=== PATIENT | female | born 1950 | race Caucasian/White ===

== ENCOUNTER 2016-12-01 09:31 | Emergency (ER) | payer OTHER ==
--- NOTE | 2016-12-01 09:38 | EDM.PDOC ---
ED HPI GENERAL MEDICAL PROBLEM - General Chief Complaint: General Stated Complaint: Right sided pain Time Seen by Provider: 12/01/16 09:31 Source of Information: Reports: Patient, Old records ([facility] chart/EMR), Significant Other History Limitations: Reports: No limitations - History of Present Illness INITIAL COMMENTS - FREE TEXT/NARRATIVE: The patient was brought to the emergency room via private automobile by her significant other for evaluation of progressive nonproductive cough during the last 3-4 days with patient recently diagnosed with influenza B. by her regular provider yesterday. She did have a fever of 101 yesterday morning with last Tylenol dosage of 1000 mg at midnight last evening. She has had some intermittent progressive right lower sharp pleuritic type symptoms and rated these at 10/10 earlier this morning. The patient has also had some loose stools with about 10 bowel movements per day during the last 24 hours. No recent history of abdominal pain, heartburn, nausea, melena, gross hematochezia , or any food intolerance, including fatty foods, etc.. Her significant other has similar type symptoms and was also diagnosed with influenza B. The patient did get her influenza booster this season Onset: gradual Onset Date: 11/27/16 Onset Time: 12:00 Duration: Getting worse Location: Reports: chest. Denies: face, neck, abdomen, back, upper extremity, left, upper extremity, right Quality: Reports: Sharp Severity: severe Improves with: Reports: None Worsens with: Reports: None Context: Reports: Other (As above) Associated Symptoms: Reports: chest pain (Pleurisy), cough, fever/chills, loss of appetite, weakness (Borderline). 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 Abdominal Pain Score (Numeric/FACES): 10 - Related Data Allergies Allergy/AdvReac Type Severity Reaction Status Date / Time metoprolol Allergy UNSURE Verified 12/01/16 09:42 oxycodone HCl [From Percocet] Allergy Airway Verified 12/01/16 09:42 Tightness Penicillins Allergy Rash Verified 12/01/16 09:42 pravastatin Allergy Muscle Verified 12/01/16 09:42 Aches simvastatin Allergy Diarrhea Verified 12/01/16 09:42 Sulfa (Sulfonamide Allergy Airway Verified 12/01/16 09:42 Antibiotics) Tightness zoster vaccine live Allergy Other Verified 12/01/16 10:47 [From Zostavax (PF)] Home Meds: Home Meds Fluticasone Propionate [Flonase] 2 spray NASBOTH BID 07/19/14 [History] Rosuvastatin [Crestor] 5 mg PO DAILY 07/19/14 [History] Cholecalciferol (Vitamin D3) [Vitamin D3] 1,000 unit PO DAILY 11/19/16 [History] Levothyroxine Sodium [Synthroid] 137 mcg PO ACBREAKFAST 11/19/16 [History] Mag Hydrox/Al Hydrox/Simeth [Antacid Liquid] 30 ml PO ASDIRECTED PRN 11/19/16 [ History] Pantoprazole [Protonix] 40 mg PO DAILY 11/19/16 [History] Sertraline [Zoloft] 50 mg PO DAILY 11/19/16 [History] Sucralfate [Carafate] 1 gm PO TID 11/19/16 [History] Triamterene/Hydrochlorothiazid [Dyazide 37.5-25] 1 cap PO DAILY 11/19/16 [ History] metFORMIN HCl [Metformin HCl] 500 mg PO DAILY 11/19/16 [History] Cefprozil [Cefzil] 500 mg PO Q12HR #20 tablet 12/01/16 [Rx] Dextromethorphan/guaiFENesin [Mucinex DM ER 600-30 MG] 1 tab PO BID #20 tab.er 12/01/16 [Rx] Ipratropium/Albuterol Sulfate [Iprat-Albut 0.5-3(2.5) MG/3 ML] 3 ml IH Q6HR #0 ampule 12/01/16 [Rx] Past Medical History HEENT History: Reports: Allergic rhinitis, Impaired vision, Sinusitis, Other ( see below). Denies: Cataract, Glaucoma, Hard of hearing, Macular degeneration, Retinal detachment Other HEENT History: oral surgery with dental implants lower teeth as below. Full upper dentures. Right lower lip,gum and chin numb secondary to injury during oral surgery, patient wears glasses, allergic rhinitis and sinusitis Cardiovascular History: Reports: Arrhythmia, High cholesterol, Hypertension, Other (see below). Denies: Afib, Aneurysm, Blood clots/VTE/DVT, CAD, Heart Failure, Heart murmur, NC, PVD, Syncope Other Cardiovascular History: PVCs Respiratory History: Reports: Bronchitis, recurrent, COPD, Pneumonia, recurrent , Other (see below). Denies: Asthma, Intubation, previous, PE, Pneumothorax, Sleep apnea, TB Other Respiratory History: Pulmonary Nodules in the right middle lobe x2 CT scan being followed by [facility], moderate COPD by chest x-ray Gastrointestinal History: Reports: Cholelithiasis, Colon polyp, Diverticulosis, Fecal incontinence (Stress stool incontinence with coughing, benign hyperplastic colonic polyps at 10 cm and at 25 cm at time of colonoscopy on ), Gastritis, GERD, PUD, Other (see below). Denies: Celiac disease, Chronic constipation, Chronic diarrhea, GI bleed, Hepatitis, Helicobacter pylori , Inflammatory bowel disease, Irritable bowel syndrome, Jaundice, Pancreatitis Other Gastrointestinal History: Gastritis and esophagitis at time of EGD in November 2006 with history of possible gastric ulcer at age 21 Genitourinary History: Reports: Urinary incontinence, UTI, recurrent, Other ( see below). 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 Denies: Dysfunctional uterine bleeding, Endometriosis, Fibroids, PID, Spontaneous : 2 Para: 2 (Full term without complications during pregnancies or deliveries although first child was breech) LMP (Approximate): Menopausal (At about age 47) Musculoskeletal History: Reports: Amputation, Arthritis, Back pain, chronic, Fibromyalgia, Osteoarthritis, Osteoporosis, Other (see below). Denies: Fracture , Gout, RA, SLE Other Musculoskeletal History: Mild scoliosis Neurological History: Reports: None. Denies: Cerebral aneurysms, Concussion, CVA, Headaches, chronic, Migraines, MS, Neuropathy, diabetic, Neuropathy, peripheral, Parkinson's, Seizure, TIA Psychiatric History: Reports: Anxiety, Depression. Denies: Abuse, victim of, ADD, ADHD, Addiction, Psych Hospitalization(s), PTSD, Suicide attempt, Suicidal ideation Endocrine/Metabolic History: Reports: Diabetes, type II, Hypothyroidism, Osteoporosis, Other (see below). Denies: Diabetes, gestational, Diabetes, type I, IDDM Other Endocrine/Metabolic History: Pre diabetes Hematologic History: Reports: Other (see below). Denies: Anemia, Blood transfusion(s), Iron deficiency Immunologic History: Reports: None. Denies: AIDS, HIV, SLE Oncologic (Cancer) History: Reports: None. Denies: Basal cell carcinoma, Cervix , Colon, Hodgkin's Lymphoma, Leukemia, Lymphoma, Malignant melanoma, Non-Hodgkin 's Lymphoma, Squamous cell carcinoma Dermatologic History: Reports: Venous stasis dermatitis. Denies: Eczema, Psoriasis - Infectious Disease History Infectious Disease History: Reports: Chicken pox, Measles, Mumps, Pertussis ( whooping cough), Shingles (Right-sided facial frontal herpes zoster in September 2016, right lower abdominal region in about 2011, left lower abdominal region in about 2004). Denies: C-difficile, Meningitis, Mononucleosis, MRSA, Rheumatic Fever, Rubella, Scarlet fever, TB, VRE - Past Surgical History Head Surgeries/Procedures: Reports: None HEENT Surgical History: Reports: Naso-sinus surgery, Oral surgery, Other (see below). Denies: Adenoidectomy, Cataract surgery, Eye surgery, Laser surgery, LASIK, Myringotomy w tube(s), Tonsillectomy Other HEENT Surgeries/Procedures: Complete upper teeth extraction with lower dental implants, sinus surgery in the Cardiovascular Surgical History: Reports: None. Denies: Varicose, Vascular surgery Respiratory Surgical History: Reports: None. Denies: Lung Biopsies, Thoracentesis GI Surgical History: Reports: Cholecystectomy, Colonoscopy, Colostomy, EGD, Polypectomy, Other (see below). Denies: Appendectomy, Hernia, abdominal, Hernia , inguinal, Hernia repair/other Other GI Surgeries/Procedures: Laparoscopic cholecystectomy in 1998, colonoscopy with polypectomy x2 on 07/19/14, EGD with biopsy on 11/19/06 Female Surgical History: Reports: None. Denies: Breast biopsy, section, Hysterectomy, Salpingo-oophorectomy, Tubal ligation Endocrine Surgical History: Reports: None. Denies: Thyroid biopsy Neurological Surgical History: Denies: C-Spine, Discectomy, Laminectomy, Lumbar spine, Spinal fusion, Vertebroplasty Musculoskeletal Surgical History: Reports: None. Denies: Amputation, Arthroscopic procedure, Carpal tunnel, Ganglion cyst, Joint replacement, ORIF, Shoulder surgery Oncologic Surgical History: Reports: None Dermatological Surgical History: Reports: None - Past Imaging History Past Imaging History: Reports: Carotid US (Carotid Doppler studies on 12/20/14), CAT scan (CT of the head on 11/30/14, CT of the chest on 11/16/16, CT of the neck and chest both with IV contrast on 01/18/12, CT of the sinuses on 08/19/11), DEXA scan (11/09/16), Mammogram (Last mammogram on 11/09/16), Ultrasound (Renal ultrasound on 11/16/16) Social & Family History - Family History Cardiac: Reports: Hypertension, Other (see below) Other Cardiac Family History: Father with hypertension : Reports: Cystic kidney disease, Renal disease/insufficiency, Other (see below) Other Family History: Father with renal insufficiency and polycystic kidneys Neurological: Reports: MS, Other (see below) Other Neurological Family History: Brother with MS Endocrine/Metabolic: Reports: Diabetes, type II, IDDM, Other (see below) Other Endocrine/Metabolic Family History: Brother with IDDM, AODM in sister and brother Oncologic: Reports: Breast, Skin, Other (see below) Other Oncologic Family History: Melanoma in sister, sister with breast cancer in her 50s - Tobacco Use Smoking Status *Q: Former Smoker Tobacco Use Within Last Twelve Months: No Years of Tobacco use: 24 Packs/Tins Daily: 1 (Quit smoking in 2007 with history of cigarette use for about 20 years between ages 21 and 41 with subsequent 4-5 year use of cigars thereafter) Used Tobacco, but Quit: Yes Month Tobacco Last Used: quit in 2007 Smoking Cessation Information Provided To Patient: No Second Hand Smoke Exposure: No Second Hand Smoke Education Provided: No - Caffeine Use Caffeine Use: Reports: Coffee (5 cups per day), Soda (2 sodas per month), Tea ( One glass per month). Denies: Energy drinks - Alcohol Use Alcohol Use History: Yes Days Per Week of Alcohol Use: 0 (No previous DWIs, problems with alcohol abuse, etc.) Number of Drinks Per Day: 4 (Usually beer about once per month) Total Drinks Per Week: 0 Alcohol Use in Last Twelve Months: Yes Alcohol Use Frequency: Socially - Recreational Drug Use Recreational Drug Use: No Drug Use in Last 12 Months: No Recreational Drug Type: Denies: Amphetamines (Speed), Cocaine, Heroin, Inhalants (Glues, Solvents, Aerosols), LSD (Acid), Marijuana/Hashish, Methamphetamine - Living Situation & Occupation Living situation: Reports: (1991 with 2 children from that marriage), alone 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 Denies: diaphoresis, weight loss, weight gain HEENT: Reports: Glasses, Rhinitis, Sinus problem. Denies: Dental pain, Ear pain , Throat pain, Vertigo, Vision change Respiratory: Reports: pleuritic chest pain, cough. Denies: shortness of breath , wheezing, sputum Cardiovascular: Reports: Edema (Stable dependent). Denies: Chest pain, Blood pressure problem, Claudication, Dyspnea on exertion, Lightheadedness, Orthopnea , Palpitations, PND, Syncope Endocrine: Reports: no symptoms GI/Abdominal: Reports: Diarrhea, Decreased appetite. Denies: Abdominal pain, Black stool, Bloody stool, Constipation, Difficulty swallowing, Distension, Flatus, Hematemesis, Hematochezia, Melena, Mucous in stool, Nausea, Stool incontinence, Vomiting : Reports: no symptoms. Denies: discharge, dysuria, flank pain, frequency, hematuria, incontinence, pain, urgency, urinary retention Musculoskeletal: Reports: joint pain (Generalized arthralgia). Denies: neck pain, shoulder pain, back pain, leg pain, joint swelling, muscle pain, muscle stiffness Skin: Reports: no symptoms. Denies: diaphoresis, pruritis, rash, wound Neurological: Reports: no symptoms. Denies: confusion, dizziness, headache, numbness, paresthesia, syncope, tingling, weakness Psychiatric: Reports: No symptoms. Denies: Agitation, Anxiety, Confusion, Depression, Hallucinations Hematologic/Lymphatic: Reports: no symptoms Immunologic: Reports: no symptoms ED EXAM, GENERAL - Physical Exam Exam: See Below Exam Limited By: No limitations General Appearance: alert, WD/WN, no apparent distress, anxious (Mild to moderate) Eye Exam: bilateral eye: EOMI, normal inspection (No nystagmus), PERRL Ears: normal external exam, normal canal, hearing grossly normal, normal TMs Nose: normal inspection, normal mucosa, no blood, clear rhinorrhea (Mild bilateral) Throat/Mouth: Normal inspection, Normal lips, Normal gums, Normal oropharynx, Normal voice, No airway compromise, Other (Mild dry oral mucosa). No: Normal teeth (Complete upper dentures), Dysphagia, Perioral cyanosis Head: atraumatic, normocephalic. No: facial swelling, facial tenderness, sinus tenderness Neck: normal inspection, supple, non-tender, full range of motion. No: lymphadenopathy (L), lymphadenopathy (R), thyromegaly Respiratory/Chest: no respiratory distress, no accessory muscle use, chest non- tender, rales (Mild bilateral basilar rales). No: pleural rub, retractions Cardiovascular: normal peripheral pulses, regular rate, rhythm, no edema, no gallop, no JVD, no murmur, no rub. No: gallop/S3, gallop/S4, friction rub Peripheral Pulses: 2+: radial (L), radial (R) GI/Abdominal: normal bowel sounds, soft, non tender, no organomegaly, no distention, no abnormal bruit, no mass, other (obese). No: guarding (Female) Exam: Deferred Rectal (Female) Exam: Deferred Back Exam: normal inspection, full range of motion. No: CVA tenderness (L), decreased range of motion, muscle spasm Extremities: normal inspection, normal range of motion, non-tender, no pedal edema, normal capillary refill. No: Dede's Sign Neurological: alert, oriented, CN II-XII intact, normal cognition, normal gait, no motor/sensory deficits Psychiatric: anxious (Mild to moderate), depressed mood (Borderline) Skin Exam: Warm, Dry, Intact, Normal color, No rash. No: Diaphoretic, Ecchymosis, Petechiae, Rash, Wound/incision Lymphatic: no adenopathy Course - Vital Signs Last Recorded V/S: Last Vital Signs Temp 36.7 C 12/01/16 09:39 Pulse 82 12/01/16 09:39 Resp 20 12/01/16 09:39 BP 118/66 12/01/16 09:39 Pulse Ox 99 12/01/16 09:39 Vital Signs - 24 hr 12/01/16 09:39 Temperature [ 36.7 C Oral] Pulse, 82 Peripheral [ Right Pulse Oximetry] Respiratory 20 Rate Blood Pressure 118/66 [Right Upper Arm] O2 Sat by Pulse 99 Oximetry - Orders/Labs/Meds Orders: Active Orders 24 hr Category Date Time Status Peripheral IV Care [RC] . DIRECTED Care 12/01/16 09:41 Active Abdomen Series w Chest 1V [CR] Stat Exams 12/01/16 09:38 Taken CULTURE BLOOD [BC] Stat Lab 12/01/16 09:45 Received CULTURE BLOOD [BC] Stat Lab 12/01/16 09:45 Received CULTURE URINE [RM] Routine Lab 12/01/16 11:00 Received Blood Culture x2 Reflex Set [OM.PC] Urgent Oth 12/01/16 09:38 Ordered Peripheral IV Insertion Adult [OM.PC] Routine Oth 12/01/16 09:39 Ordered Labs: Laboratory Tests 12/01/16 12/01/16 12/01/16 Range/Units 09:38 09:45 09:45 WBC 3.7 L (4.0-10.2) K/uL RBC 5.08 (3.77-5.09) M/uL Hgb 15.0 (11.7-15.5) g/dL Hct 45.3 (34.0-46.0) % MCV 89.2 (84.0-98.0) fL MCH 29.5 (28.2-33.3) pg MCHC 33.1 (31.7-36.0) g/dL RDW 13.3 (11.2-14.1) % Plt Count 201 (150-350) K/uL Neut % (Auto) 44.8 L (45.0-80.0) % Lymph % (Auto) 40.7 (10.0-50.0) % Harding % (Auto) 12.3 (2.0-14.0) % Eos % (Auto) 1.9 (0.0-5.0) % Baso % (Auto) 0.3 (0.0-2.0) % Neut # 1.64 (1.40-7.00) K/uL Lymph # 1.49 (0.50-3.50) K/uL Harding # 0.45 (0.00-1.00) K/uL Eos # 0.07 (0.00-0.50) K/uL Baso # 0.01 (0.00-0.20) K/uL Sodium 136 (136-145) mmol/L Potassium 3.9 (3.5-5.1) mmol/L Chloride 97 L (98-107) mmol/L Carbon Dioxide 27.2 (21.0-32.0) mmol/L BUN 14 (7-18) mg/dL Creatinine 0.88 (0.51-1.17) mg/dL Est Cr Clr Drug Dosing TNP Estimated GFR (MDRD) > 60 mL/min Glucose 103 (74-106) mg/dL Lactic Acid 1.2 (0.4-2.0) mmol/L Calcium 9.1 (8.5-10.1) mg/dL Magnesium 1.9 (1.8-2.4) mg/dL Total Bilirubin 0.3 (0.2-1.0) mg/dL AST 63 H (15-37) U/L ALT 53 (12-78) U/L Alkaline Phosphatase 62 (46-116) IU/L Total Protein 8.0 (6.4-8.2) g/dL Albumin 3.8 (3.4-5.0) g/dL Amylase 75 (25-115) U/L Lipase 275 (73-393) U/L Specimen Type Urine Color Urine Appearance Urine pH (5.0-9.0) Ur Specific Campbell (1.005-1.030) Urine Protein (NEGATIVE) mg/dL Urine Glucose (UA) (NEGATIVE) mg/dL Urine Ketones (NEGATIVE) mg/dL Urine Occult Blood (NEGATIVE) Urine Nitrite (NEGATIVE) Urine Bilirubin (NEGATIVE) Urine Urobilinogen (0.2-1.0) E.U./dL Ur Leukocyte Esterase (NEGATIVE) Urine RBC /HPF Urine WBC /HPF Ur Epithelial Cells /LPF Urine Bacteria (NONE TO FEW) /HPF 12/01/16 Range/Units 11:00 WBC (4.0-10.2) K/uL RBC (3.77-5.09) M/uL Hgb (11.7-15.5) g/dL Hct (34.0-46.0) % MCV (84.0-98.0) fL MCH (28.2-33.3) pg MCHC (31.7-36.0) g/dL RDW (11.2-14.1) % Plt Count (150-350) K/uL Neut % (Auto) (45.0-80.0) % Lymph % (Auto) (10.0-50.0) % Harding % (Auto) (2.0-14.0) % Eos % (Auto) (0.0-5.0) % Baso % (Auto) (0.0-2.0) % Neut # (1.40-7.00) K/uL Lymph # (0.50-3.50) K/uL Harding # (0.00-1.00) K/uL Eos # (0.00-0.50) K/uL Baso # (0.00-0.20) K/uL Sodium (136-145) mmol/L Potassium (3.5-5.1) mmol/L Chloride (98-107) mmol/L Carbon Dioxide (21.0-32.0) mmol/L BUN (7-18) mg/dL Creatinine (0.51-1.17) mg/dL Est Cr Clr Drug Dosing Estimated GFR (MDRD) mL/min Glucose (74-106) mg/dL Lactic Acid (0.4-2.0) mmol/L Calcium (8.5-10.1) mg/dL Magnesium (1.8-2.4) mg/dL Total Bilirubin (0.2-1.0) mg/dL AST (15-37) U/L ALT (12-78) U/L Alkaline Phosphatase (46-116) IU/L Total Protein (6.4-8.2) g/dL Albumin (3.4-5.0) g/dL Amylase (25-115) U/L Lipase (73-393) U/L Specimen Type Urincc Urine Color Yellow Urine Appearance Clear Urine pH 6.0 (5.0-9.0) Ur Specific Campbell 1.010 (1.005-1.030) Urine Protein Negative (NEGATIVE) mg/dL Urine Glucose (UA) Negative (NEGATIVE) mg/dL Urine Ketones Negative (NEGATIVE) mg/dL Urine Occult Blood Trace-intact H (NEGATIVE) Urine Nitrite Negative (NEGATIVE) Urine Bilirubin Negative (NEGATIVE) Urine Urobilinogen 0.2 (0.2-1.0) E.U./dL Ur Leukocyte Esterase Negative (NEGATIVE) Urine RBC 5-10 H /HPF Urine WBC 0-5 /HPF Ur Epithelial Cells Few /LPF Urine Bacteria Few (NONE TO FEW) /HPF Meds: Medications Discontinued Medications Generic Name Dose Route Start Last Admin Trade Name Sakshi PRN Reason Stop Dose Admin Famotidine 40 mg 12/01/16 09:39 12/01/16 09:57 Pepcid IVPUSH 12/01/16 09:40 40 mg ONETIME ONE Administration Lactated Ringer's 1,000 mls @ 999 mls/hr 12/01/16 09:39 12/01/16 10:07 Ringers, Lactated IV 12/01/16 10:39 999 mls/hr .BOLUS ONE Administration Methylprednisolone Sodium Succinate 125 mg 12/01/16 11:44 12/01/16 11:52 Solu-Medrol IVPUSH 12/01/16 11:45 125 mg ONETIME ONE Administration Pantoprazole Sodium 40 mg 12/01/16 09:39 12/01/16 09:57 Protonix Iv IVPUSH 12/01/16 09:40 40 mg ONETIME ONE Administration Sodium Chloride 10 ml 12/01/16 09:39 12/01/16 11:52 Saline Flush FLUSH 10 ml ASDIRECTED PRN Administration Keep Vein Open - Radiology Interpretation Free Text/Narrative:: Acute abdominal x-rays shows evidence of status post laparoscopic cholecystectomy with nonspecific bowel gaseous pattern but no evidence of free air, ileus, or obstruction. Mild scoliosis and osteoarthritic changes noted. Moderate COPD changes with mild pulmonary infiltrates in the right middle lobe. Borderline cardiomegaly with mild prominence of the proximal aortic arch and aortic valve calcification Departure - Departure Time of Disposition: 12:10 Disposition: Home, Self-Care 01 Condition: good Clinical Impression: Influenza B, Peptic reflux disease, Mixed anxiety depressive disorder, Pleurisy , Dehydration COPD (chronic obstructive pulmonary disease) Qualifiers: COPD type: emphysema Emphysema type: panlobular Qualified Code(s): J43.1 - Panlobular emphysema Hypothyroidism Qualifiers: Hypothyroidism type: acquired Qualified Code(s): E03.9 - Hypothyroidism, unspecified Osteoarthritis Qualifiers: Osteoarthritis location: multiple joints Osteoarthritis type: primary Qualified Code(s): M15.0 - Primary generalized (osteo)arthritis Pneumonia Qualifiers: Pneumonia type: due to unspecified organism Laterality: right Lung location: middle lobe of lung Qualified Code(s): J18.1 - Lobar pneumonia, unspecified organism UTI (urinary tract infection) Qualifiers: Urinary tract infection type: acute cystitis Hematuria presence: with hematuria Qualified Code(s): N30.01 - Acute cystitis with hematuria Prescriptions: Cefprozil [Cefzil] 500 mg PO Q12HR #20 tablet Dextromethorphan/guaiFENesin [Mucinex DM ER 600-30 MG] 1 tab PO BID #20 tab.er Instructions: Community-Acquired Pneumonia, Adult, [id number], Influenza, Adult, [id number], Chronic Obstructive Pulmonary Disease, [id number], Pleurisy, [id number] Referrals: Savannah Green PA-C [Primary Care Provider] - Forms: ED Department Discharge, Return to Work/School Form Additional Instructions: 1. Followup with your regular provider in 10-14 days as directed for reevaluation and recommended repeat CBC, urine tests, and chest x-ray. 2. Tylenol 650 mg by mouth every 4 hours and/or OTC ibuprofen 2-3 tabs by mouth every 6 hours with food as directed./needed. 3. Hygiene precautions as discussed 4. Work excuse- See Form 5. Consider lung function test/PFTs once your current infection has resolved 6. Mcqueeney diet including encouragement of oral fluids such as sports drinks, etc. for 24-48 hours as directed. Advance to low fat, low cholesterol, diverticulosis 1800-calorie ADA diet as tolerated thereafter. 7. Urine tests should be repeated at follow up visit with possible repeat urine culture,etc. at that time. Today's urine culture is pending with results in about 2-3 days. We will call you, if we need to change your therapy. - Problem List & Annotations (1) Pneumonia SNOMED Code(s): 915418093 Code(s): J18.9 - PNEUMONIA, UNSPECIFIED ORGANISM Status: Acute Priority: High Onset Date: ~12/01/16 Annotation/Comment:: Secondary right middle lobe pneumonia by today's chest x-ray with additional Cefzil therapy. Patient has tolerated cephalosporin therapy in the past by her history despite her previous rash from penicillin. Close followup by regular provider Qualifiers: Pneumonia type: due to unspecified organism Laterality: right Lung location: middle lobe of lung Qualified Code(s): J18.1 - Lobar pneumonia, unspecified organism (2) Pleurisy SNOMED Code(s): 712557299 Code(s): R09.1 - PLEURISY Status: Acute Priority: High Onset Date: ~ Annotation/Comment:: Oral ibuprofen, etc. with caution as per discharge instructions. One dose of IV Solu-Medrol given in the emergency room. Patient was initially uncertain whether her pain was actually pleurisy versus right CVA tenderness but clinical exam, etc. indicate pleurisy rather than urolithiasis with no colic type symptoms. Possible beginning UTI as below (3) Influenza B SNOMED Code(s): 14099002 Code(s): J10.1 - FLU DUE TO OTH IDENT INFLUENZA VIRUS W OTH RESP MANIFEST Status: Acute Priority: High Onset Date: ~11/27/16 Annotation/Comment:: Patient with influenza B. diagnosed by her regular provider yesterday with symptoms starting on 11/27, which does not make her a candidate for Tamiflu. Influenza complicated by probable right middle lobe pneumonia as above with additional mild leukopenia. Close followup by her regular provider as per discharge instructions. Work excuse provided. (4) COPD (chronic obstructive pulmonary disease) SNOMED Code(s): 65589843 Code(s): J44.9 - CHRONIC OBSTRUCTIVE PULMONARY DISEASE, UNSPECIFIED Status : Acute Priority: Medium Annotation/Comment:: Patient was already provided nebulizer therapy yesterday with this to be continued until otherwise directed. Moderate COPD by today's chest x-ray. PFTs recommended with previous history of tobacco use Qualifiers: COPD type: emphysema Emphysema type: panlobular Qualified Code(s): J43.1 - Panlobular emphysema (5) Peptic reflux disease SNOMED Code(s): 08296035 Code(s): K21.9 - GASTRO-ESOPHAGEAL REFLUX DISEASE WITHOUT ESOPHAGITIS Status: Chronic Priority: Medium Annotation/Comment:: Stable by history (6) Hypothyroidism SNOMED Code(s): 44711308 Code(s): E03.9 - HYPOTHYROIDISM, UNSPECIFIED Status: Chronic Priority: Medium Annotation/Comment:: Currently under therapy Qualifiers: Hypothyroidism type: acquired Qualified Code(s): E03.9 - Hypothyroidism, unspecified (7) Mixed anxiety depressive disorder SNOMED Code(s): 891265711 Code(s): F41.8 - OTHER SPECIFIED ANXIETY DISORDERS Status: Chronic Priority: Medium Annotation/Comment:: Stable by history (8) Osteoarthritis SNOMED Code(s): 029650723 Code(s): M19.90 - UNSPECIFIED OSTEOARTHRITIS, UNSPECIFIED SITE Status: Chronic Priority: Medium Annotation/Comment:: Gen. arthralgias secondary to influenza. Osteoarthritis otherwise stable with additional history of fibromyalgia Qualifiers: Osteoarthritis location: multiple joints Osteoarthritis type: primary Qualified Code(s): M15.0 - Primary generalized (osteo)arthritis (9) Dehydration SNOMED Code(s): 93914523 Code(s): E86.0 - DEHYDRATION Status: Acute Priority: Medium Onset Date : 12/01/16 Annotation/Comment:: Borderline mild dehydration by clinical exam. 1 L lactated Ringer's given by IV bolus (10) UTI (urinary tract infection) SNOMED Code(s): 87762833 Code(s): N39.0 - URINARY TRACT INFECTION, SITE NOT SPECIFIED Status: Acute Priority: Medium Onset Date: 12/01/16 Annotation/Comment:: Microscopic hematuria with possible UTI. Urine specimen sent up for culture and sensitivity. Note Cefzil therapy as above Qualifiers: Urinary tract infection type: acute cystitis Hematuria presence: with hematuria Qualified Code(s): N30.01 - Acute cystitis with hematuria - Problem List Review Problem List Initiated/Reviewed/Updated: Yes - My Orders Last 24 Hours: My Active Orders 12/01/16 09:38 Abdomen Series w Chest 1V [CR] Stat Blood Culture x2 Reflex Set [OM.PC] Urgent 12/01/16 09:39 Peripheral IV Insertion Adult [OM.PC] Routine 12/01/16 09:41 Peripheral IV Care [RC] . DIRECTED 12/01/16 09:45 CULTURE BLOOD [BC] Stat CULTURE BLOOD [BC] Stat 12/01/16 11:00 CULTURE URINE [RM] Routine - Assessment/Plan Last 24 Hours: My Active Orders 12/01/16 09:38 Abdomen Series w Chest 1V [CR] Stat Blood Culture x2 Reflex Set [OM.PC] Urgent 12/01/16 09:39 Peripheral IV Insertion Adult [OM.PC] Routine 12/01/16 09:41 Peripheral IV Care [RC] . DIRECTED 12/01/16 09:45 CULTURE BLOOD [BC] Stat CULTURE BLOOD [BC] Stat 02/28/17 11:00 CULTURE URINE [RM] Routine Assessment:: As above Plan: As above. Extensive precautions were given to the patient and her significant other, who are in agreement with the treatment plan. See Patient Instructions for further treatment and plan.
[2016-12-01] MEDS ORDERED: Pantoprazole 40 MG Vial IVPUSH ONE (09:39)
[2016-12-01] MEDS ORDERED: Famotidine 20 MG/2 ML SDV IVPUSH ONE (09:39)
[2016-12-01] MEDS ORDERED: Lactated Ringers 1,000 ML IV ONE (09:39)
[2016-12-01] MEDS ORDERED: Sodium Chloride 0.9% 10 ML Syringe FLUSH PRN (09:39)
[2016-12-01 09:41] VITALS: BP 118/66
[2016-12-01 10:15] LABS: CHLORIDE,CL 97 mmol/L (98-107); SODIUM,NA 136 mmol/L (136-145)
[2016-12-01] MEDS ORDERED: methylPREDNISolone Sodium Succinate 125 MG/2 ML SDV IVPUSH ONE (11:44)
== END 2016-12-01 12:10 | disposition home or self-care (01) ==
LOC: LL.ED 09:31
DX: J43.1 Panlobular emphysema (principal); J10.1 Influenza due to other identified influenza virus with other respiratory manifestations; K21.9 Gastro-esophageal reflux disease without esophagitis; F41.8 Other specified anxiety disorders; E86.0 Dehydration; R09.1 Pleurisy; E03.9 Hypothyroidism, unspecified; M15.0 Primary generalized (osteo)arthritis; J18.1 Lobar pneumonia, unspecified organism; I10 Essential (primary) hypertension; N30.01 Acute cystitis with hematuria; Z88.0 Allergy status to penicillin; Z88.2 Allergy status to sulfonamides; Z88.8 Allergy status to other drugs, medicaments and biological substances; Z79.899 Other long term (current) drug therapy; E78.00 Pure hypercholesterolemia, unspecified; Z87.891 Personal history of nicotine dependence
CPT/HCPCS: 36415; 74022; 80053; 81001; 82150; 83605; 83690; 83735; 85025; 87040; 87086; 96361; 96374; 96375; 99284; C9113; J2930; J7050; J7120; S0028

== ENCOUNTER 2019-07-27 08:09 | Day surgery (SDC) | payer MEDICARE, OTHER ==
[~2019-07-27 08:09] MED LIST: Lactated Ringers 1,000 ML IV SCH; Sodium Chloride 0.9% 10 ML Syringe FLUSH PRN
[2019-07-27] MEDS ORDERED: Ondansetron 4 MG/2 ML SDV IVPUSH ONE (08:45)
[2019-07-27] MEDS ORDERED: Midazolam 1 MG/ML 2 ML SDV ONE ×2 (09:31→09:35)
[2019-07-27] MEDS ORDERED: Propofol 200 MG/20 ML SDV ONE ×3 (09:31→09:35)
--- NOTE | 2019-07-27 09:33 | PCM.PN ---
- General Info Date of Service: 07/27/19 - Review of Systems Systems Review Comment:: 69-year-old female referred for EGD and colonoscopy. She has symptoms of acid reflux despite taking Zantac. She admits to mild occasional dysphasia. She has also noticed a change in her bowel pattern with some alternating diarrhea and constipation. She is medically stable to proceed today. Her recent history and physical is reviewed and no significant changes are noted. I have discussed the proposed EGD and colonoscopy with the patient. Risks such as but not limited to bleeding and GI injury reviewed. She agrees to proceed. - Patient Data Vitals - Most Recent: Last Vital Signs Temp 98.1 F 07/27/19 09:07 Pulse 57 L 07/27/19 09:07 Resp 18 07/27/19 09:07 BP 128/51 L 07/27/19 09:07 Pulse Ox Weight - Most Recent: 99.79 kg Med Orders - Current: Current Medications Lactated Ringer's (Ringers, Lactated) 1,000 mls @ 125 mls/hr IV ASDIRECTED [facility] Last Admin: 07/27/19 08:54 Dose: 125 mls/hr Sodium Chloride (Saline Flush) 10 ml FLUSH ASDIRECTED PRN PRN Reason: Keep Vein Open Discontinued Medications Ondansetron HCl (Zofran) 4 mg IVPUSH ONETIME ONE Stop: 07/27/19 08:46 Last Admin: 07/27/19 08:54 Dose: 4 mg - Problem List Review Problem List Initiated/Reviewed/Updated: Yes - Assessment Assessment:: GERD Change in bowel habits - Plan Plan:: EGD and colonoscopy
[2019-07-27] MEDS ORDERED: Lidocaine 2% 5 ML SDV ONE (09:35)
--- NOTE | 2019-07-27 10:37 | PCM.OPNOTE ---
- General Post-Op/Procedure Note Date of Surgery/Procedure: 07/27/19 Operative Procedure(s): EGD with biopsy. Colonoscopy Findings: moderate-sized hiatal hernia Otherwise normal upper endoscopy Extensive sigmoid diverticulosis Otherwise normal colonoscopy Pre Op Diagnosis: GERD. Change in bowel habits Post-Op Diagnosis: hiatal hernia. Sigmoid diverticulosis Anesthesia Technique: [facility] [place] Primary Surgeon: Benny Power Pathology: biopsies of duodenum, antrum, and distal esophagus EBL in mLs: 4 Complications: None Condition: Good
[2019-07-27 10:54] VITALS: BP 130/70; PULSE 62
--- NOTE | 2019-07-27 14:02 | OR ---
Date of Procedure: 07/27/2019 PREOPERATIVE DIAGNOSES: Gastroesophageal reflux disease and change in bowel habits. POSTOPERATIVE DIAGNOSES: Hiatal hernia and sigmoid diverticulosis. OPERATIONS PERFORMED: Esophagogastroduodenoscopy with biopsy and colonoscopy. INDICATIONS FOR SURGERY: This 69-year-old female has a history of GERD symptoms which have been worsening recently. This is occurring despite the use of chronic H2 heather. She is also noticing some right-sided abdominal pain and change in the pattern of her bowels. FINDINGS: On upper endoscopy, the patient does have a moderate-sized hiatal hernia estimated at 3 cm in size. This does not show any sign of stenosis and the GE junction is distinct without visible inflammation. The remainder of the esophagus, stomach, and the duodenum to the fourth portion appeared normal. On colonoscopy, the patient has moderate to extensive diverticulosis of the sigmoid colon. This does not show any signs of inflammation or other complication, and the remainder of the colon appears normal. DESCRIPTION OF PROCEDURE: The patient was taken to the operating room. She was given intravenous sedation, and her throat was topically anesthetized. With her in the left lateral decubitus position, the Olympus gastroscope was advanced through a mouth guard into the oropharynx. Carefully under direct visualization, the scope was then advanced down into the esophagus and then down through the stomach and into the duodenum, where examination to the fourth portion was performed. Carefully, the duodenum was examined, and because of the patient's right-sided abdominal pain, random biopsies of the duodenum were taken. The stomach was then fully examined including retroflexed examination of the fundus. Random biopsies of the antrum were taken to rule out H. pylori. The GE junction and distal esophagus were examined, and because of her GERD symptoms, random biopsies of the distal esophagus were taken. The scope was then removed, and attention was turned to colonoscopy. Digital rectal exam was performed showing no rectal masses. The Olympus colonoscope was inserted into the rectum. Retroflexed examination of the rectal canal was performed. The scope was then carefully advanced through the entire length of the colon until the cecum was reached. Cecal acquisition was confirmed by noting normal internal cecal anatomy including the appendiceal orifice and ileocecal valve. The light was also noted to transilluminate the abdominal wall in the right lower quadrant. After examining the cecum, the scope was slowly withdrawn sequentially re-examining the colonic segments until the entire colon and rectum had been fully examined. The scope was removed and the patient was taken from the operating room in satisfactory condition. ESTIMATED BLOOD LOSS: 4 mL. COMPLICATIONS: None. PROGNOSIS: Good. CHAVA Power MD /[id number]
== END 2019-07-27 11:45 | disposition home or self-care (01) ==
LOC: LL.SDS 08:09
PROVIDERS: ATTEND Surgery
DX: K57.30 Diverticulosis of large intestine without perforation or abscess without bleeding (principal); K59.00 Constipation, unspecified; R19.7 Diarrhea, unspecified; K21.9 Gastro-esophageal reflux disease without esophagitis; K44.9 Diaphragmatic hernia without obstruction or gangrene; K31.89 Other diseases of stomach and duodenum; K22.8 Other specified diseases of esophagus; E78.5 Hyperlipidemia, unspecified; E03.9 Hypothyroidism, unspecified; J44.9 Chronic obstructive pulmonary disease, unspecified; F32.9 Major depressive disorder, single episode, unspecified; M19.90 Unspecified osteoarthritis, unspecified site; Z88.2 Allergy status to sulfonamides; Z88.5 Allergy status to narcotic agent; Z88.8 Allergy status to other drugs, medicaments and biological substances; Z87.891 Personal history of nicotine dependence; Z79.899 Other long term (current) drug therapy
CPT/HCPCS: 00813; J2001; J2250; J2405; J2704; J7120

== ENCOUNTER 2019-07-30 10:17 | Emergency (ER) | payer MEDICARE, OTHER ==
[2019-07-30 10:28] VITALS: PULSE 66
--- NOTE | 2019-07-30 10:42 | EDM.PDOC ---
ED HPI GENERAL MEDICAL PROBLEM - General Chief Complaint: Lower Extremity Injury/Pain Stated Complaint: R KNEE PAIN Time Seen by Provider: 07/30/19 10:30 Source of Information: Reports: Patient, Old Records ([facility] chart/EMR) History Limitations: Reports: No Limitations - History of Present Illness INITIAL COMMENTS - FREE TEXT/NARRATIVE: The patient was brought to the emergency room via private automobile by her friend for evaluation of 8/10 sharp right knee pain with additional 4/10 proximal nasal pain secondary to a minor fall, which occurred at her home at about 21:30 hours yesterday evening. The patient was carrying a basket of laundry down her stairs when some clothing fell out of the basket causing her to trip and fall down the last 2 steps. She did land on her face and twisted her right knee at the time, however no epistaxis, other significant head injury , loss of consciousness, change in mental status, visual changes, headaches, paresthesias, neurological deficits, neck/back pain, or other complaints or injuries. The patient did take 1000 mg of Tylenol at 22:00 hours yesterday evening, however no medications today. Symptoms have been refractory to ice packs at home. She has not injured these areas in the past. Patient has been able to weight-bear with difficulty, however no knee instability, etc. The patient denies any chest pain/pressure, heart flutter, dizziness, orthostasis, orthopnea, diaphoresis, paresthesias, recent decreased exercise tolerance, or any other anginal-type symptoms. She denies any gross hematuria, colic or other UTI symptoms. No recent history of abdominal pain, heartburn, nausea, diarrhea, melena, gross hematochezia, or any food intolerance, including fatty foods, etc.. The patient also denies any recent fever, cough, wheezing, dyspnea, etc.. Onset: Sudden Onset Date: 07/29/19 Onset Time: 21:30 Duration: Constant Location: Reports: Face (Nose as above), Lower Extremity, Right. Denies: Head, Neck, Chest, Abdomen, Back, Pelvis, Upper Extremity, Left, Upper Extremity, Right, Lower Extremity, Left, Radiates to Quality: Reports: Same as Previous Episode, Sharp Severity: Moderate Improves with: Reports: Rest Worsens with: Reports: Movement Context: Reports: Trauma (As above) Associated Symptoms: Denies: Confusion, Chest Pain, Cough, Diaphoresis, Fever/ Chills, Headaches, Loss of Appetite, Malaise, Nausea/Vomiting, Rash, Seizure, Shortness of Breath, Syncope, Weakness Treatments ENTRY MANAGER: Reports: Acetaminophen (As above), Cold Therapy Right Knee Pain Score (Numeric/FACES): 8 Nose Pain Score (Numeric/FACES): 4 - Related Data Allergies Allergy/AdvReac Type Severity Reaction Status Date / Time metoprolol Allergy UNSURE Verified 07/27/19 08:46 oxycodone HCl [From Percocet] Allergy Airway Verified 07/27/19 08:46 Tightness Penicillins Allergy Rash Verified 07/27/19 08:46 pravastatin Allergy Muscle Verified 07/27/19 08:46 Aches simvastatin Allergy Diarrhea Verified 07/27/19 08:46 Sulfa (Sulfonamide Allergy Airway Verified 07/27/19 08:46 Antibiotics) Tightness zoster vaccine live Allergy Other Verified 07/27/19 08:46 [From Zostavax (PF)] Home Meds: Home Meds Cholecalciferol (Vitamin D3) [Vitamin D3] 2,000 unit PO DAILY 11/19/16 [History] Levothyroxine Sodium [Synthroid] 137 mcg PO ACBREAKFAST 11/19/16 [History] Pantoprazole [ProTONIX] 40 mg PO DAILY 11/19/16 [History] Fluticasone Propionate [Flonase] 1 spray NASBOTH DAILY PRN 07/27/19 [History] Furosemide [Lasix] 20 mg PO DAILY PRN 07/27/19 [History] Ranitidine [Zantac] 150 mg PO BEDTIME 07/27/19 [History] Rosuvastatin [Crestor] 5 mg PO BEDTIME 07/27/19 [History] Sertraline [Zoloft] 50 mg PO DAILY 07/27/19 [History] Cetirizine HCl [Zyrtec] 10 mg PO DAILY 07/30/19 [History] Past Medical History HEENT History: Reports: Allergic Rhinitis, Impaired Vision, Sinusitis, Other ( See Below). Denies: Cataract, Glaucoma, Hard of Hearing, Macular Degeneration, Otitis Media, Retinal Detachment Other HEENT History: The patient wears driving glasses. Note history of dental implants and teeth extractions as below with complete upper and lower dentures. Cardiovascular History: Reports: Arrhythmia, High Cholesterol, Hypertension, Other (See Below). Denies: Afib, Aneurysm, Blood Clots/VTE/DVT, CAD, Cardiomyopathy, Heart Failure, Heart Murmur, [place], PVD, Syncope Other Cardiovascular History: Chronic dependent edema. PVCs. Respiratory History: Reports: Bronchitis, Recurrent, COPD, Pneumonia, Recurrent , Other (See Below). Denies: Asthma, Intubation, Previous, PE, Pneumothorax, Sleep Apnea, TB Other Respiratory History: Pulmonary nodules in the right middle lobe [address] scan with was followed by [facility]. Moderate COPD by chest x- ray. Gastrointestinal History: Reports: Cholelithiasis, Colon Polyp, Diverticulosis, Fecal Incontinence, Gastritis, GERD, Hiatal Hernia, PUD, Other (See Below). Denies: Bowel Obstruction, Celiac Disease, Chronic Constipation, Chronic Diarrhea, GI Bleed, Hepatitis, Inflammatory Bowel Disease, Irritable Bowel Syndrome, Jaundice, Pancreatitis Other Gastrointestinal History: Sigmoid diverticulosis by colonoscopy. Hiatal hernia by EGD in 2019. Gastritis and esophagitis at time of EGD in November 2006 with history of possible gastric ulcer at age 21. Unknown type of colonic polyps excised via colonoscopy in 2013 as below. Genitourinary History: Reports: Urinary Incontinence, Other (See Below). Denies : Acute Renal Failure, Chronic Renal Insuffiency, Renal Calculus, STD, UTI, Recurrent Other Genitourinary History: Bilateral Renal Cysts. Urinary stress incontinence. PHARMACY CUSTOMER CARE SPECIALIST History: Reports: . Denies: Dysfunctional Uterine Bleeding, Endometriosis, Fibroids, PID, Spontaneous : 2 Para: 2 LMP (Approximate): Other (See Below) Other PHARMACY CUSTOMER CARE SPECIALIST History: Menopause at about age 47. Full term without complications during pregnancies or deliveries. Musculoskeletal History: Reports: Amputation, Arthritis, Back Pain, Chronic, Fibromyalgia, Osteoarthritis, Osteoporosis, Other (See Below). Denies: Fracture , Gout, Neck Pain, Chronic, RA, SLE Other Musculoskeletal History: Mild scoliosis Neurological History: Reports: None. Denies: Cerebral Aneurysms, Concussion, CVA, Headaches, Chronic, Migraines, MS, Neuropathy, Diabetic, Neuropathy, Peripheral, Parkinson's, Seizure, TIA, Vertigo Psychiatric History: Reports: Anxiety, Depression. Denies: Abuse, Victim of, ADD, ADHD, Addiction, Psych Hospitalization(s), Psychosis, PTSD, Suicide Attempt , Suicidal Ideation Endocrine/Metabolic History: Reports: Diabetes, Type II, Hypothyroidism, Obesity /BMI 30+, Vitamin D Deficiency. Denies: Diabetes, Gestational, Diabetes, Type I , Diabetes Mellitus, Type 3c, Hyperthyroidism, Osteopenia, Osteoporosis Other Endocrine/Metabolic History: Pre-diabetes. Hematologic History: Reports: None. Denies: Anemia, Blood Transfusion(s), Iron Deficiency Immunologic History: Reports: None. Denies: AIDS, HIV, SLE Oncologic (Cancer) History: Reports: None. Denies: Basal Cell Carcinoma, Breast , Cervix, Colon, Hodgkin's Lymphoma, Leukemia, Lymphoma, Malignant Melanoma, Non -Hodgkin's Lymphoma, Ovarian, Squamous Cell Carcinoma, Uterine Dermatologic History: Reports: Venous Stasis Dermatitis. Denies: Eczema, Psoriasis - Infectious Disease History Infectious Disease History: Reports: Chicken Pox, Influenza (2016), Measles, Mumps, Pertussis (Whooping Cough), Shingles (Right-sided facial frontal herpes zoster in September 2016. Right lower abdominal herpes zoster in about 2011 with additional previous left lower abdominal involvement in about 2004.). Denies: C -Difficile, Meningitis, Mononucleosis, MRSA, Rheumatic Fever, Rubella, Scarlet Fever, TB - Past Surgical History Head Surgeries/Procedures: Reports: None HEENT Surgical History: Reports: Naso-Sinus Surgery, Oral Surgery, Other (See Below). Denies: Adenoidectomy, Eye Surgery, Laser Surgery, LASIK, Myringotomy w Tube(s), Tonsillectomy Other HEENT Surgeries/Procedures: Complete teeth extraction with lower dental implants. Sinus surgery in the . Cardiovascular Surgical History: Reports: None. Denies: Varicose Respiratory Surgical History: Reports: None. Denies: Thoracentesis GI Surgical History: Reports: Cholecystectomy, Colonoscopy, Colostomy, EGD, Polypectomy, Other (See Below). Denies: Appendectomy, Hernia, Abdominal, Hernia , Inguinal, Hernia Repair/Other Other GI Surgeries/Procedures: Last EGD with biopsy and colonoscopy on . Colonoscopy with polypectomy 2 on 07/19/14. EGD with biopsy on 11/19/06. Laparoscopic cholecystectomy in 1998. Female Surgical History: Reports: None. Denies: Breast Biopsy, Section, D&C, Hysterectomy, Oophorectomy, Salpingo-Oophorectomy, Tubal Ligation Endocrine Surgical History: Reports: None. Denies: Thyroid Biopsy Neurological Surgical History: Reports: None. Denies: C-Spine, Discectomy, Laminectomy, Lumbar Spine, Sacral Spine, Spinal Fusion, Thoracic Spine, Vertebroplasty Musculoskeletal Surgical History: Reports: None. Denies: Arthroscopic Procedure , Carpal Tunnel, Ganglion Cyst, Joint Replacement, ORIF, Shoulder Surgery Oncologic Surgical History: Reports: None Dermatological Surgical History: Reports: None - Past Imaging History Past Imaging History: Reports: Carotid US (12/20/14.), CAT Scan (CT of the head on 11/30/14. CT of the chest on 11/16/16. CT of the neck and chest both with IV contrast on 01/18/12. CT of the sinuses on 08/19/11.), DEXA Scan (11/09/16.), Mammogram (Last on 11/09/16.), MRI (MRI of the pelvis with contrast on 05/29/19.), Ultrasound (Pelvic ultrasound on 05/12/19 with possible right adnexal lesion however negative follow-up MRI as above. Renal ultrasound on 11/16/16.) Social & Family History - Family History Cardiac: Reports: Hypertension, Other (See Below) Other Cardiac Family History: Father with hypertension : Reports: Cystic Kidney Disease, Renal Disease/Insufficiency, Other (See Below) Other Family History: Father with renal insufficiency and polycystic kidneys Neurological: Reports: MS, Other (See Below) Other Neurological Family History: Brother with MS Endocrine/Metabolic: Reports: Diabetes, type II, IDDM, Other (See Below) Other Endocrine/Metabolic Family History: Brother with IDDM, AODM in sister and brother Oncologic: Reports: Breast, Skin, Other (See Below) Other Oncologic Family History: Melanoma in sister, sister with breast cancer in her 50s. Daughter with fatal metastatic breast cancer at age 47. Another daughter with breast cancer at age 45. - Tobacco Use Smoking Status *Q: Former Smoker Tobacco Use Within Last Twelve Months: No Years of Tobacco use: 24 Packs/Tins Daily: 1 Packs/Tins Daily Comment: Patient quit smoking in 2007 with history of cigarette use for about 20 years between ages 21 and 41 with subsequent 45 year cigar use history thereafter. Used Tobacco, but Quit: Yes Smoking Cessation Information Provided To Patient: No Second Hand Smoke Exposure: No Second Hand Smoke Education Provided: No - Caffeine Use Caffeine Use: Reports: Coffee (2 cups per day), Soda (2 sodas per month), Tea ( One glass per month). Denies: Energy Drinks - Alcohol Use Days Per Week of Alcohol Use: 0 Number of Drinks Per Day: 4 Number of Drinks Per Day Comment: Usually beer about once per month. No previous DWIs, problems with alcohol abuse, etc. Total Drinks Per Week: 0 Alcohol Use in Last Twelve Months: Yes - Recreational Drug Use Recreational Drug Use: No Drug Use in Last 12 Months: No Recreational Drug Type: Denies: Amphetamines (Speed), Cocaine, Heroin, Inhalants (Glues, Solvents, Aerosols), LSD (Acid), Marijuana/Hashish, Methamphetamine, Morphine, Oxycodone - Living Situation & Occupation Living situation: Reports: (1992. 2 children.), Alone Occupation: Retired (Age 69 in February 2019. 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 ED EXAM, GENERAL - Physical Exam Exam: See Below Exam Limited By: Uncooperative General Appearance: WD/WN, No Apparent Distress Eye Exam: Bilateral Eye: EOMI, Normal Inspection (No nystagmus), PERRL Ears: Normal External Exam, Normal Canal, Hearing Grossly Normal, Normal TMs Nose: Normal Mucosa, No Blood, Nasal Tenderness (As below), Nasal Swelling ( Mild nasal bridge swelling, ecchymosis, and localized tenderness with no evidence of significant deformity, crepitation, etc.). No: Nasal Deformity (As below) Throat/Mouth: Normal Lips, Normal Gums, Normal Oropharynx, Normal Voice, No Airway Compromise. No: Normal Teeth (Complete dentures uppers and lowers), Dysphagia, Perioral Cyanosis Head: Atraumatic, Normocephalic, Other (Note nasal tenderness/injury as above). No: Facial Swelling, Facial Tenderness, Sinus Tenderness Neck: Normal Inspection, Supple, Non-Tender, Full Range of Motion. No: Carotid Bruit, Lymphadenopathy (L), Lymphadenopathy (R), Thyromegaly Respiratory/Chest: No Respiratory Distress, Lungs Clear, Normal Breath Sounds, No Accessory Muscle Use, Chest Non-Tender. No: Pleural Rub, Retractions Cardiovascular: Normal Peripheral Pulses, Regular Rate, Rhythm, No Edema, No Gallop, No JVD, No Murmur, No Rub. No: Gallop/S3, Gallop/S4, Friction Rub Peripheral Pulses: 2+: Radial (L), Radial (R), Dorsalis Pedis (L), Dorsalis Pedis (R) GI/Abdominal: Normal Bowel Sounds, Soft, Non-Tender, No Organomegaly, No Distention, No Abnormal Bruit, No Mass, Pelvis Stable, Other (Obese). No: Guarding (Female) Exam: Deferred Rectal (Female) Exam: Deferred Back Exam: Full Range of Motion, Other (Mild scoliosis). No: CVA Tenderness (L) , CVA Tenderness (R), Muscle Spasm, Paraspinal Tenderness, Vertebral Tenderness Extremities: Normal Capillary Refill, Pedal Edema (Stable by history +1 pedal/ pretibial edema), Joint Swelling (Mild right knee effusion), Leg Pain (Moderate right knee pain with flexion with mild to moderate palpation pain over the proximal right fibula. Negative anterior drawer, Liam's, and pivot shift tests), Limited Range of Motion (Right knee secondary to discomfort). No: Dede 's Sign, Increased Warmth Neurological: Alert, Oriented, CN II-XII Intact, Normal Cognition, Normal Gait, Normal Reflexes (Negative Babinski's), No Motor/Sensory Deficits Psychiatric: Normal Affect, Normal Mood Skin Exam: Warm, Dry, Normal Color, No Rash, Ecchymosis (As above), Wound/ Incision (2 cm superficial abrasion over the left patella). No: Diaphoretic Lymphatic: No Adenopathy Course - Vital Signs Last Recorded V/S: Last Vital Signs Temp 36.0 C 07/30/19 10:18 Pulse 66 07/30/19 10:18 Resp 18 07/30/19 10:18 BP 155/65 H 07/30/19 11:45 Pulse Ox 96 07/30/19 10:18 Vital Signs - 24 hr 07/30/19 07/30/19 10:18 11:45 Temperature [ 36.0 C Temporal] Pulse, 66 Peripheral [ Pulse Oximetry] Respiratory 18 Rate Blood Pressure 161/78 H 155/65 H [Left Arm] O2 Sat by Pulse 96 Oximetry - Orders/Labs/Meds Orders: Active Orders 24 hr Category Date Time Status Facial Bones Comp Min 3V [CR] Stat Exams 07/30/19 10:42 Ordered Knee 3V Rt [CR] Stat Exams 07/30/19 10:42 Ordered Durable Medical Equipment for Discharge [DME for Oth 07/30/19 11:28 Ordered Discharge] [COMM] Routine Durable Medical Equipment for Discharge [DME for Oth 07/30/19 11:28 Ordered Discharge] [COMM] Routine Obtain Past Medical Record [OM.PC] Routine Oth 07/30/19 10:42 Active Labs: None Meds: None - Radiology Interpretation Free Text/Narrative:: X-rays of the facial bones shows evidence of mild to moderate proximal right nasal bridge deviation to the right consistent of possible proximal nasal fracture, however note previous history of sinus surgery as above. X-rays of the right knee, 3 views, shows evidence of moderate osteoarthritic changes with additional mild effusion, however no evidence of fracture, dislocation, etc. Departure - Departure Time of Disposition: 12:05 Disposition: Home, Self-Care 01 Condition: Good Clinical Impression: Right knee pain, Abrasion, Osteoarthritis, Peptic reflux disease, Mixed anxiety depressive disorder, Hypothyroidism, COPD (chronic obstructive pulmonary disease), Nasal fracture, Hyperlipidemia, Hypertension - Discharge Information *PRESCRIPTION DRUG MONITORING PROGRAM REVIEWED*: Not Applicable *COPY OF PRESCRIPTION DRUG MONITORING REPORT IN PATIENT LOBO: Not Applicable Instructions: Crutch Use, Adult, [id number], Nasal Fracture, [id number], Knee Sprain, Adult, [id number] Referrals: Davida Alston PA [Primary Care Provider] - Forms: ED Department Discharge Additional Instructions: 1. Follow up with your regular provider in 10-14 days as needed, if symptoms persist. Bring these discharge instructions with you to that visit.. 2. BenGay or equivalent, heating pad, and/or ice packs as directed. 3. Increase activity as tolerated, including weightbearing, etc. as discussed with regular crutch use and right knee sleeve use for at least one week and then as needed thereafter 4. Tylenol 650 mg by mouth every 4 hours and/or OTC ibuprofen 2-3 tabs by mouth every 6 hours with food as directed./needed. You may stagger these medications for 48-72 hours only, which essentially means that you are receiving a pain medication about every 2 hours. 5. Immediately after this visit verify that your cellular telephone's voicemail has been activated and is empty. Also verify that your home telephone 's answering machine is operating properly and has space to receive messages. Note that it is sometimes necessary for us to be able to contact you at a later date to discuss your medical care. 6. Please remember that we are ALWAYS here for you and want to answer any questions you may have. Feel free to call the hospital any time and we call you back MIREYA. - Problem List & Annotations (1) Right knee pain SNOMED Code(s): 24208832 Code(s): M25.561 - PAIN IN RIGHT KNEE Status: Acute Priority: High Current Visit: Yes Onset Date: 07/29/19 Annotation/Comment:: Probable right knee sprain with symptomatic relief as per discharge instructions. Knee sleeve and crutches were provided. Activity restrictions, etc. were discussed. Close follow-up by her regular provider depending on clinical course, including possible repeat x-rays, CT scans versus MRI of the knee, etc. Qualifiers: Chronicity: acute Qualified Code(s): M25.561 - Pain in right knee (2) Nasal fracture SNOMED Code(s): 721651570 Code(s): S02.2XXA - FRACTURE OF NASAL BONES, INIT ENCNTR FOR CLOSED FRACTURE Status: Acute Priority: High Current Visit: Yes Onset Date: 07/29/19 Annotation/Comment:: Note possible nasal fracture with previous history of sinus surgery as above. Various therapeutic options were discussed with the patient with observation for the time being. Note no epistaxis, etc. at time of the above injury. Qualifiers: Encounter type: initial encounter Fracture type: closed Qualified Code(s) : S02.2XXA - Fracture of nasal bones, initial encounter for closed fracture (3) COPD (chronic obstructive pulmonary disease) SNOMED Code(s): 13064980 Code(s): J44.9 - CHRONIC OBSTRUCTIVE PULMONARY DISEASE, UNSPECIFIED Status : Acute Priority: Medium Current Visit: Yes Annotation/Comment:: No recent fever or bronchitic type symptoms. No current medical therapy. Consider PFTs depending on her clinical course with previous history of tobacco use. Qualifiers: COPD type: emphysema Emphysema type: panlobular Qualified Code(s): J43.1 - Panlobular emphysema (4) Hypothyroidism SNOMED Code(s): 51143496 Code(s): E03.9 - HYPOTHYROIDISM, UNSPECIFIED Status: Chronic Priority: Medium Current Visit: Yes Annotation/Comment:: Currently under therapy Qualifiers: Hypothyroidism type: acquired Qualified Code(s): E03.9 - Hypothyroidism, unspecified (5) Mixed anxiety depressive disorder SNOMED Code(s): 865633908 Code(s): F41.8 - OTHER SPECIFIED ANXIETY DISORDERS Status: Chronic Priority: Medium Current Visit: Yes Annotation/Comment:: Stable by history with current medical therapy. (6) Osteoarthritis SNOMED Code(s): 732106150 Code(s): M19.90 - UNSPECIFIED OSTEOARTHRITIS, UNSPECIFIED SITE Status: Chronic Priority: Medium Current Visit: Yes Annotation/Comment:: Otherwise stable by history with additional history of fibromyalgia. Qualifiers: Osteoarthritis location: multiple joints Osteoarthritis type: primary Qualified Code(s): M15.0 - Primary generalized (osteo)arthritis (7) Peptic reflux disease SNOMED Code(s): 102126135 Code(s): K21.9 - GASTRO-ESOPHAGEAL REFLUX DISEASE WITHOUT ESOPHAGITIS Status: Chronic Priority: Medium Current Visit: Yes Annotation/Comment:: Moderate control by history. Patient was advised to use NSAIDs with caution secondary to her hiatal hernia and current symptoms. Note Zantac has been pulled off the market secondary to possible carcinogenic effect. She wants to continue Zantac for the time being, however does agree to discuss this further with her regular provider. Consider increasing her Protonix to a twice a day regimen versus change to Pepcid, etc., which was also discussed with the patient today. Recent EGD and colonoscopy as above. (8) Abrasion SNOMED Code(s): 579830825 Code(s): T14.8XXA - OTHER INJURY OF UNSPECIFIED BODY REGION, INITIAL ENCOUNTER Status: Acute Priority: Medium Current Visit: Yes Onset Date: 07/30/19 Annotation/Comment:: Minimal abrasion over her left knee. Observe for now. (9) Hyperlipidemia SNOMED Code(s): 71763685 Code(s): E78.5 - HYPERLIPIDEMIA, UNSPECIFIED Status: Chronic Priority: Medium Current Visit: Yes Annotation/Comment:: Currently under therapy. Note current obesity and prediabetes with weight loss in moderation advisable. Continue to observe closely by her regular provider. Qualifiers: Hyperlipidemia type: unspecified Qualified Code(s): E78.5 - Hyperlipidemia , unspecified (10) Hypertension SNOMED Code(s): 27723208 Code(s): I10 - ESSENTIAL (PRIMARY) HYPERTENSION Status: Chronic Priority : Medium Current Visit: Yes Annotation/Comment:: Blood pressures were somewhat elevated in the emergency room, however improved prior to discharge without treatment. Continue to observe closely by her regular provider. Qualifiers: Hypertension type: essential hypertension Qualified Code(s): I10 - Essential (primary) hypertension - Problem List Review Problem List Initiated/Reviewed/Updated: Yes - My Orders Last 24 Hours: My Active Orders 07/30/19 10:42 Facial Bones Comp Min 3V [CR] Stat Knee 3V Rt [CR] Stat Obtain Past Medical Record [OM.PC] Routine 07/30/19 11:28 Durable Medical Equipment for Discharge [DME for Discharge] [COMM] Routine Durable Medical Equipment for Discharge [DME for Discharge] [COMM] Routine - Assessment/Plan Last 24 Hours: My Active Orders 07/30/19 10:42 Facial Bones Comp Min 3V [CR] Stat Knee 3V Rt [CR] Stat Obtain Past Medical Record [OM.PC] Routine 07/30/19 11:28 Durable Medical Equipment for Discharge [DME for Discharge] [COMM] Routine Durable Medical Equipment for Discharge [DME for Discharge] [COMM] Routine Assessment:: As above Plan: As above. Extensive precautions were given to the patient, who is in agreement with the treatment plan. See Patient Instructions for further treatment and plan. Note that the patient was also strongly advised to follow-up with her already scheduled mammogram next week by her history with strong family history of breast cancer as above.
[2019-07-30 11:45] VITALS: BP 155/65
== END 2019-07-30 12:05 | disposition home or self-care (01) ==
LOC: LL.ED 10:17
DX: S02.2XXA Fracture of nasal bones, initial encounter for closed fracture (principal); S80.212A Abrasion, left knee, initial encounter; M17.11 Unilateral primary osteoarthritis, right knee; J44.9 Chronic obstructive pulmonary disease, unspecified; E03.9 Hypothyroidism, unspecified; F41.8 Other specified anxiety disorders; E78.5 Hyperlipidemia, unspecified; I10 Essential (primary) hypertension; K21.9 Gastro-esophageal reflux disease without esophagitis; E11.9 Type 2 diabetes mellitus without complications; E78.00 Pure hypercholesterolemia, unspecified; E66.9 Obesity, unspecified; Z68.36 Body mass index [BMI] 36.0-36.9, adult; Z79.890 Hormone replacement therapy; Z79.899 Other long term (current) drug therapy; Z88.8 Allergy status to other drugs, medicaments and biological substances; Z88.0 Allergy status to penicillin; Z88.5 Allergy status to narcotic agent; Z88.2 Allergy status to sulfonamides; Z88.7 Allergy status to serum and vaccine; Z87.891 Personal history of nicotine dependence; W10.9XXA Fall (on) (from) unspecified stairs and steps, initial encounter; X50.1XXA Overexertion from prolonged static or awkward postures, initial encounter; Y93.89 Activity, other specified; Y92.009 Unspecified place in unspecified non-institutional (private) residence as the place of occurrence of the external cause
CPT/HCPCS: 70150; 73562-RT; 99283-25; 99284

== ENCOUNTER → 2019-08-10 | Outpatient (CLI) | payer MEDICARE, OTHER | LOC: LL.DI 11:10 | PROVIDERS: ATTEND Physician Assistant | DX: Z12.31 Encounter for screening mammogram for malignant neoplasm of breast (principal); M25.551 Pain in right hip; M54.5 Low back pain; G89.29 Other chronic pain; M16.11 Unilateral primary osteoarthritis, right hip; M77.9 Enthesopathy, unspecified; M47.816 Spondylosis without myelopathy or radiculopathy, lumbar region | CPT/HCPCS: 72100; 77063; 77067 ==

== ENCOUNTER 2020-04-09 11:03 | Emergency (ER) | payer MEDICARE, OTHER ==
[2020-04-09 11:25] VITALS: BP 147/69; PULSE 62
--- NOTE | 2020-04-09 11:30 | EDM.PDOC ---
ED HPI GENERAL MEDICAL PROBLEM - General Chief Complaint: Genitourinary Problem Stated Complaint: urinary frequency Time Seen by Provider: 04/09/20 11:15 Source of Information: Reports: Patient History Limitations: Reports: No Limitations - History of Present Illness INITIAL COMMENTS - FREE TEXT/NARRATIVE: Pt with increased urinary frequency and dysuria for several days Some hematuria No fever Onset: Gradual Duration: Day(s): Location: Reports: Abdomen Quality: Reports: Ache Severity: Moderate pain with urination Pain Score (Numeric/FACES): 4 - Related Data Allergies Allergy/AdvReac Type Severity Reaction Status Date / Time metoprolol Allergy UNSURE Verified 04/09/20 11:15 oxycodone HCl [From Percocet] Allergy Airway Verified 04/09/20 11:15 Tightness Penicillins Allergy Rash Verified 04/09/20 11:15 pravastatin Allergy Muscle Verified 04/09/20 11:15 Aches simvastatin Allergy Diarrhea Verified 04/09/20 11:15 Sulfa (Sulfonamide Allergy Airway Verified 04/09/20 11:15 Antibiotics) Tightness zoster vaccine live Allergy Other Verified 04/09/20 11:15 [From Zostavax (PF)] Home Meds: Home Meds Cholecalciferol (Vitamin D3) [Vitamin D3] 2,000 unit PO DAILY 11/19/16 [History] Levothyroxine Sodium [Synthroid] 137 mcg PO ACBREAKFAST 11/19/16 [History] Pantoprazole [ProTONIX] 40 mg PO DAILY 11/19/16 [History] Fluticasone Propionate [Flonase] 1 spray NASBOTH DAILY PRN 07/27/19 [History] Furosemide [Lasix] 20 mg PO DAILY PRN 07/27/19 [History] Ranitidine [Zantac] 150 mg PO BEDTIME 07/27/19 [History] Sertraline [Zoloft] 50 mg PO DAILY 07/27/19 [History] Cetirizine HCl [Zyrtec] 10 mg PO DAILY 07/30/19 [History] Past Medical History HEENT History: Reports: Allergic Rhinitis, Impaired Vision, Sinusitis, Other (See Below). Denies: Cataract, Glaucoma, Hard of Hearing, Macular Degeneration, Otitis Media, Retinal Detachment Other HEENT History: The patient wears driving glasses. Note history of dental implants and teeth extractions as below with complete upper and lower dentures. Cardiovascular History: Reports: Arrhythmia, High Cholesterol, Hypertension, Other (See Below). Denies: Afib, Aneurysm, Blood Clots/VTE/DVT, CAD, Cardiomyopathy, Heart Failure, Heart Murmur, IL, PVD, Syncope Other Cardiovascular History: Chronic dependent edema. PVCs. Respiratory History: Reports: Bronchitis, Recurrent, COPD, Pneumonia, Recurrent, Other (See Below). Denies: Asthma, Intubation, Previous, PE, Pneumothorax, Sleep Apnea, TB Other Respiratory History: Pulmonary nodules in the right middle lobe [address] scan with was followed by [facility]. Moderate COPD by chest x- ray. Gastrointestinal History: Reports: Cholelithiasis, Colon Polyp, Diverticulosis, Fecal Incontinence, Gastritis, GERD, Hiatal Hernia, PUD, Other (See Below). Denies: Bowel Obstruction, Celiac Disease, Chronic Constipation, Chronic Diarrhea, GI Bleed, Hepatitis, Inflammatory Bowel Disease, Irritable Bowel Syndrome, Jaundice, Pancreatitis Other Gastrointestinal History: Sigmoid diverticulosis by colonoscopy. Hiatal hernia by EGD in 2019. Gastritis and esophagitis at time of EGD in November 2006 with history of possible gastric ulcer at age 21. Unknown type of colonic polyps excised via colonoscopy in 2013 as below. Genitourinary History: Reports: Urinary Incontinence, Other (See Below). Denies: Acute Renal Failure, Chronic Renal Insuffiency, Renal Calculus, STD, UTI, Recurrent Other Genitourinary History: Bilateral Renal Cysts. Urinary stress incontinence. MANAGER SERVICE DESK History: Reports: . Denies: Dysfunctional Uterine Bleeding, Endometriosis, Fibroids, PID, Spontaneous Other MANAGER SERVICE DESK History: Menopause at about age 47. Full term without complications during pregnancies or deliveries. Musculoskeletal History: Reports: Amputation, Arthritis, Back Pain, Chronic, Fibromyalgia, Osteoarthritis, Osteoporosis, Other (See Below). Denies: Fracture, Gout, Neck Pain, Chronic, RA, SLE Other Musculoskeletal History: Mild scoliosis Neurological History: Reports: None. Denies: Cerebral Aneurysms, Concussion, CVA, Headaches, Chronic, Migraines, MS, Neuropathy, Diabetic, Neuropathy, Peripheral, Parkinson's, Seizure, TIA, Vertigo Other Neuro History: Fibromyalgia Psychiatric History: Reports: Anxiety, Depression. Denies: Abuse, Victim of, ADD, ADHD, Addiction, Psych Hospitalization(s), Psychosis, PTSD, Suicide Attempt, Suicidal Ideation Endocrine/Metabolic History: Reports: Diabetes, Type II, Hypothyroidism, Ob esity/BMI 30+, Vitamin D Deficiency. Denies: Diabetes, Gestational, Diabetes, Type I, Diabetes Mellitus, Type 3c, Hyperthyroidism, Osteopenia, Osteoporosis Other Endocrine/Metabolic History: Pre-diabetes. Hematologic History: Reports: None. Denies: Anemia, Blood Transfusion(s), Iron Deficiency Other Hematologic History: Vit. D defiecency Immunologic History: Reports: None. Denies: AIDS, HIV, SLE Oncologic (Cancer) History: Reports: None. Denies: Basal Cell Carcinoma, Breast, Cervix, Colon, Hodgkin's Lymphoma, Leukemia, Lymphoma, Malignant Melanoma, Non-Hodgkin's Lymphoma, Ovarian, Squamous Cell Carcinoma, Uterine Dermatologic History: Reports: Venous Stasis Dermatitis. Denies: Eczema, Psoriasis - Infectious Disease History Infectious Disease History: Reports: Chicken Pox, Influenza (2016), Measles, Mumps, Pertussis (Whooping Cough), Shingles (Right-sided facial frontal herpes zoster in September 2016. Right lower abdominal herpes zoster in about 2011 with additional previous left lower abdominal involvement in about 2004.). Denies: C-Difficile, Meningitis, Mononucleosis, MRSA, Rheumatic Fever, Rubella, Scarlet Fever, TB - Past Surgical History Head Surgeries/Procedures: Reports: None HEENT Surgical History: Reports: Naso-Sinus Surgery, Oral Surgery, Other (See Below). Denies: Adenoidectomy, Eye Surgery, Laser Surgery, LASIK, Myringotomy w Tube(s), Tonsillectomy Other HEENT Surgeries/Procedures: Complete teeth extraction with lower dental implants. Sinus surgery in the . Cardiovascular Surgical History: Reports: None. Denies: Varicose Respiratory Surgical History: Reports: None. Denies: Thoracentesis GI Surgical History: Reports: Cholecystectomy, Colonoscopy, Colostomy, EGD, Polypectomy, Other (See Below). Denies: Appendectomy, Hernia, Abdominal, Hernia, Inguinal, Hernia Repair/Other Other GI Surgeries/Procedures: Last EGD with biopsy and colonoscopy on 07/27/19. Colonoscopy with polypectomy 2 on 07/19/14. EGD with biopsy on 11/19/06. Laparoscopic cholecystectomy in 1998. Female Surgical History: Reports: None. Denies: Breast Biopsy, Section, D&C, Hysterectomy, Oophorectomy, Salpingo-Oophorectomy, Tubal Ligation Endocrine Surgical History: Reports: None. Denies: Thyroid Biopsy Neurological Surgical History: Reports: None. Denies: C-Spine, Discectomy, Laminectomy, Lumbar Spine, Sacral Spine, Spinal Fusion, Thoracic Spine, Vertebroplasty Musculoskeletal Surgical History: Reports: None. Denies: Arthroscopic Procedure, Carpal Tunnel, Ganglion Cyst, Joint Replacement, ORIF, Shoulder Surgery Oncologic Surgical History: Reports: None Dermatological Surgical History: Reports: None - Past Imaging History Past Imaging History: Reports: Carotid US (12/20/14.), CAT Scan (CT of the head on 11/30/14. CT of the chest on 11/16/16. CT of the neck and chest both with IV contrast on 01/18/12. CT of the sinuses on 08/19/11.), DEXA Scan (11/09/16.), Mammogram (Last on 11/09/16.), MRI (MRI of the pelvis with contrast on 05/29/19.), Ultrasound (Pelvic ultrasound on 05/12/19 with possible right adnexal lesion however negative follow-up MRI as above. Renal ultrasound on 11/16/16.) Social & Family History - Family History Cardiac: Reports: Hypertension, Other (See Below) Other Cardiac Family History: Father with hypertension : Reports: Cystic Kidney Disease, Renal Disease/Insufficiency, Other (See Below) Other Family History: Father with renal insufficiency and polycystic kidneys Neurological: Reports: MS, Other (See Below) Other Neurological Family History: Brother with MS Endocrine/Metabolic: Reports: Diabetes, type II, IDDM, Other (See Below) Other Endocrine/Metabolic Family History: Brother with IDDM, AODM in sister and brother Oncologic: Reports: Breast, Skin, Other (See Below) Other Oncologic Family History: Melanoma in sister, sister with breast cancer in her 50s. Daughter with fatal metastatic breast cancer at age 47. Another daughter with breast cancer at age 45. - Tobacco Use Smoking Status *Q: Former Smoker Used Tobacco, but Quit: Yes Month/Year Tobacco Last Used: Quit in 1991 - Caffeine Use Caffeine Use: Reports: Coffee - Recreational Drug Use Recreational Drug Use: No - Living Situation & Occupation Living situation: Reports: (1991. 2 children.), Alone Occupation: Retired (Age 69 in February 2019. 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 Urine Color Yellow Urine Appearance Clear Urine pH 5.5 (5.0-9.0) Ur Specific [place] 1.015 (1.005-1.030) Urine Protein Negative (NEGATIVE) mg/dL Urine Glucose (UA) Negative (NEGATIVE) mg/dL Urine Ketones Negative (NEGATIVE) mg/dL Urine Occult Blood Moderate H (NEGATIVE) Urine Nitrite Negative (NEGATIVE) Urine Bilirubin Negative (NEGATIVE) Urine Urobilinogen 0.2 (0.2-1.0) E.U./dL Ur Leukocyte Esterase Negative (NEGATIVE) Urine RBC 0-5 /HPF Urine WBC 5-10 H /HPF Ur Epithelial Cells Many H /LPF Urine Bacteria Few (NONE TO FEW) /HPF - Re-Assessments/Exams Free Text/Narrative Re-Assessment/Exam: 04/09/20 11:29 See UA Culture pending Departure - Departure Time of Disposition: 11:30 Disposition: Home, Self-Care 01 Clinical Impression: UTI, Urinary tract infectious disease - Discharge Information *PRESCRIPTION DRUG MONITORING PROGRAM REVIEWED*: Not Applicable *COPY OF PRESCRIPTION DRUG MONITORING REPORT IN PATIENT LOBO: Not Applicable Instructions: Urinary Tract Infection, Adult Referrals: Davida Alston PA [Primary Care Provider] - Additional Instructions: Rx Cipro 500 mg Twice a day for 10 days Follow up in clinic Sepsis Event Note (ED) - Evaluation Sepsis Screening Result: No Definite Risk - Focused Exam Vital Signs: Vital Signs Temp Pulse Resp BP Pulse Ox 04/09/20 11:24 98.3 F 62 16 147/69 H 96 - My Orders Last 24 Hours: My Active Orders 04/09/20 11:26 CULTURE URINE [RM] Stat - Assessment/Plan Last 24 Hours: My Active Orders 04/09/20 11:26 CULTURE URINE [] Stat
== END 2020-04-09 11:40 | disposition home or self-care (01) ==
LOC: LL.ED 11:03
DX: N39.0 Urinary tract infection, site not specified (principal); I10 Essential (primary) hypertension; F41.9 Anxiety disorder, unspecified; F32.9 Major depressive disorder, single episode, unspecified; E11.9 Type 2 diabetes mellitus without complications; E03.9 Hypothyroidism, unspecified; E66.9 Obesity, unspecified; Z68.32 Body mass index [BMI] 32.0-32.9, adult; Z87.891 Personal history of nicotine dependence; Z88.8 Allergy status to other drugs, medicaments and biological substances; Z88.5 Allergy status to narcotic agent; Z88.0 Allergy status to penicillin; Z88.2 Allergy status to sulfonamides; Z88.7 Allergy status to serum and vaccine; Z79.899 Other long term (current) drug therapy
CPT/HCPCS: 81001; 99282; 99283